=== PATIENT | male | born 1960 | race Caucasian/White ===

== ENCOUNTER 2022-04-17 20:46 | Inpatient (IN) | payer MEDICAID ==
[~2022-04-17] VITALS: Ht 167.6 cm; Wt 69.9 kg
[2022-04-17] MEDS ORDERED: LEVETIRACETAM 1000MG PREMIX 100 ML IV ONE (21:00)
[2022-04-17 21:31] LABS: BASOPHILS % 0.4 % (0.0-2.0); EOSINOPHILS % 3.5 % (0.0-5.0); HEMATOCRIT. 37.4 % (42.0-52.0); HEMOGLOBIN. 12.2 g/dL (14.0-18.0); MEAN CORPUSCULAR HEMOGLOBIN 28.7 pg (28.0-32.0); MEAN CORPUSCULAR VOLUME 87.7 fL (80.0-94.0); MEAN PLATELET VOLUME 10.7 fl (7.4-10.4); MONOCYTES % 8.3 % (2.0-8.0); NEUTROPHILS % 41.8 % (40.0-76.0); PLATELET 152 x1000/uL (130-400); RED BLOOD CELL COUNT 4.26 mill/uL (4.7-6.1); RED CELL DISTRIBUTION WIDTH 13.9 % (11.6-14.6)
[2022-04-17 21:41] LABS: CHLORIDE 108 mEq/L (98-107)
[2022-04-17 21:50] LABS: ETHANOL BLOOD < 10 mg/dL
[2022-04-17 22:01] LABS: CLARITY URINE CLOUDY (CLEAR); COLOR URINE YELLOW (YELLOW); KETONES URINE TRACE (NEGATIVE); LEUKOCYTE ESTERASE URINE NEGATIVE (NEGATIVE); NITRITE URINE NEGATIVE (NEGATIVE); OCCULT BLOOD URINE NEGATIVE (NEGATIVE); PROTEIN URINE NEGATIVE (NEGATIVE); SPECIFIC GRAVITY URINE 1.026 (1.005-1.030)
[2022-04-17 22:14] LABS: *AMPHETAMINES SCREEN URINE NEGATIVE (NEGATIVE); *BARBITURATES SCREEN URINE NEGATIVE (NEGATIVE); *BENZODIAZEPINES SCREEN URINE NEGATIVE (NEGATIVE); *COCAINE SCREEN URINE NEGATIVE (NEGATIVE); CANNABINOID URINE SCREEN NEGATIVE (NEGATIVE); METHADONE URINE SCREEN NEGATIVE (NEGATIVE); OPIATES URINE SCREEN NEGATIVE (NEGATIVE); PHENCYCLIDINE URINE SCREEN NEGATIVE (NEGATIVE)
[2022-04-17] MEDS ORDERED: CEFTRIAXONE 2 G PREMIX 50 ML IV ONE (22:45)
[2022-04-18] MEDS ORDERED: CEFTRIAXONE 2 G PREMIX 50 ML IV NR (01:15)
[2022-04-18 09:12] VITALS: BP 89/56
[2022-04-18 09:30] VITALS: BP 90/56
[2022-04-18] MEDS ORDERED: MAGN400C PO (10:24)
[2022-04-18] MEDS ORDERED: LEVE10006 PO (10:24)
[2022-04-18] MEDS ORDERED: FOLI0.4T6 MT (10:24)
[2022-04-18] MEDS ORDERED: ATOR20TA65 MT (10:24)
[2022-04-18] MEDS ORDERED: LOSA50TA41 PO (10:24)
[2022-04-18] MEDS ORDERED: ONDANSETRON HCL 4MG/2ML INJ IV PRN (10:45)
[2022-04-18] MEDS ORDERED: ACETAMINOPHEN 325MG TABLET PO PRN (10:45)
[2022-04-18] MEDS ORDERED: CLONIDINE 0.1MG TABLET PO PRN (10:45)
[2022-04-18] MEDS ORDERED: ATORVASTATIN CALCIUM 20MG TABLET PO SCH (11:00)
[2022-04-18] MEDS ORDERED: LOSARTAN POTASSIUM 50 MG TABLET PO SCH (11:00)
[2022-04-18] MEDS ORDERED: LEVETIRACETAM 500MG/5ML CUP PO SCH (11:00)
[2022-04-18 12:00] VITALS: BP 98/57
[2022-04-18] MEDS ORDERED: ENOXAPARIN 40MG/0.4ML SYR SUBCUT SCH (12:00)
[2022-04-18] MEDS ORDERED: SODIUM CHLORIDE 0.9% 500 ML IV ONE (13:00)
[2022-04-18 14:08] VITALS: BP 105/60
[2022-04-18 16:00] VITALS: BP 97/58
== END 2022-04-18 15:55 | disposition home or self-care (01) | DRG 53 ==
LOC: ER 20:46 → MICUSO 23:00 → 7WST 04-18 09:31
PROVIDERS: ADMIT Internal Medicine; ATTEND Internal Medicine
DX: R56.9 Unspecified convulsions (principal); E11.9 Type 2 diabetes mellitus without complications; I10 Essential (primary) hypertension; R13.10 Dysphagia, unspecified; S06.9X0D Unspecified intracranial injury without loss of consciousness, subsequent encounter; X58.XXXD Exposure to other specified factors, subsequent encounter
CPT/HCPCS: 36415; 71045; 80053; 80305; 80320; 81003; 82962; 85025; 93005; 99285; J0696; J1650; J1953; G0480